=== PATIENT | male | born 1995 | race African-American/Black ===

== ENCOUNTER 2017-08-03 22:17 | Emergency (ER) | payer OTHER ==
[2017-08-03 22:34] VITALS: BP 117/78; PULSE 81; RESP 16; TEMP 97.6
[2017-08-03] MEDS ORDERED: PENICILLIN VK 500MG STARTER 4 TAB BTL PO STA (22:59)
[2017-08-03] MEDS ORDERED: MORPHINE SULFATE 2 MG/ML SYRINGE IM STA ×2 (22:59→23:38)
--- NOTE | 2017-08-03 23:16 | ED ---
General Adult HPI - General Chief complaint: Dental/Oral Stated complaint: Dental Time Seen by Provider: 08/03/17 22:54 Source: patient, family, RN notes reviewed Mode of arrival: ambulatory Limitations: no limitations - History of Present Illness Initial comments: Chief complaint and history of present illness this is a 22 year old male with a complaint of very painful toothache. Ongoing for 2 days. Teeth numbers 18 and 19 have caries. - Related Data Previous Rx's Medication Instructions Recorded Hydrocodone/Acetaminophen [Edison 1 each PO Q6HR PRN #12 tab 08/03/17 5-325] Penicillin V Potassium [Pen Vee K] 500 mg PO Q6HR #40 tablet 08/03/17 Allergies Allergy/AdvReac Type Severity Reaction Status Date / Time No Known Allergies Allergy Verified 08/03/17 22:34 Review of Systems ROS Statement: Those systems with pertinent positive or pertinent negative responses have been documented in the HPI. Review of systems. Patient has severe pain to teeth numbers 18 and 19. No other complaints. No past medical problems no surgeries. Family history negative. No known ALLERGIES. Nonsmoker nondrinker. ROS Other: All systems not noted in ROS Statement are negative. Past Medical History Past Medical History: No Reported History Additional Past Medical History / Comment(s): Migraines History of Any Multi-Drug Resistant Organisms: None Reported Past Surgical History: No Surgical Hx Reported Past Psychological History: No Psychological Hx Reported Smoking Status: Never smoker Past Alcohol Use History: Occasional Past Drug Use History: None Reported General Exam - General Exam Comments Initial Comments: Physical exam; pertinent for the patient's visit his complaint of pain to the members 18 and 19. Patient has dental caries to these teeth. His vital signs shows a temperature 97.6 pulse 81 respiratory rate 16 pulse ox on percent room air blood pressure 117/78 No anterior cervical lymphadenopathy. Otherwise no complaints of shortness of breath or any other problems. Patient received a pain shot emergency room as well as Pen-Vee K by mouth. Limitations: no limitations Course Vital Signs 08/03/17 22:30 Temperature 97.6 F Pulse Rate 81 Respiratory 16 Rate Blood Pressure 117/78 O2 Sat by Pulse 100 Oximetry Medical Decision Making - Medical Decision Making Medical decision making; patient's hip because of a painful dental caries. Patient received morphine IM and prednisone by mouth. The patient be discharged care of his significant other. Replaced on pain medication as well as antibiotics. Advised to call follow up with his dentist or the emergency dental numbers provided. Disposition Clinical Impression: Toothache, Dental caries Disposition: HOME SELF-CARE Condition: Fair Instructions: Dental Caries (ED), Toothache (ED) Additional Instructions: Taken to Biaxin pain medication as directed. Call follow-up to dentist for emergency dental numbers divided. Prescriptions: Hydrocodone/Acetaminophen [Edison 5-325] 1 each PO Q6HR PRN #12 tab PRN Reason: Pain Penicillin V Potassium [Pen Vee K] 500 mg PO Q6HR #40 tablet Is patient prescribed a controlled substance at d/c from ED?: Yes When asked, does pt state using other controlled substances?: No If prescribed controlled substance>3 days was MAPS reviewed?: No If Rx opioid, was Start Talking consent form obtained?: Yes Referrals: None,Stated [Primary Care Provider] - 1-2 days Time of Disposition: 23:16
== END 2017-08-03 23:48 | disposition home or self-care (01) ==
LOC: EC 22:17
DX: K02.9 Dental caries, unspecified (principal)
CPT/HCPCS: 99283; 96372 ×2; J2270